=== PATIENT | female | born 1995 | race Caucasian/White ===

== ENCOUNTER 2019-12-29 09:42 | Outpatient (REF) | payer OTHER, SELFPAY ==
[2019-12-29 19:46] LABS: CT PCR NOT DETECTED (Not Detect.); NG PCR NOT DETECTED (Not Detect.)
[2019-12-30 09:32] LABS: BV Int Neg Control Negative (Negative); BV Int Pos Control Positive (Positive)
== END 2019-12-29 09:43 | disposition home or self-care (01) ==
LOC: HO.LAB 09:42
PROVIDERS: Visit Provider Advanced Practice Midwife
DX: N92.1 Excessive and frequent menstruation with irregular cycle (principal); E66.9 Obesity, unspecified
CPT/HCPCS: 87480; 87491; 87510; 87591; 87660; 99202

== ENCOUNTER 2020-01-13 12:41 | Outpatient (REF) | payer OTHER, SELFPAY ==
--- NOTE | 2020-01-13 12:49 | US_ITS ---
EXAMINATION: US PELVIS CLINICAL INFORMATION: Obesity. Excessive and frequent menstruation. COMPARISON: None TECHNIQUE: Transabdominal pelvic ultrasound was performed. Patient declined transvaginal exam. FINDINGS: Exam is limited due to body habitus. The uterus is retroverted and measures 7.9 x 4.9 x 4.4 cm in dimension. No focal uterine lesion is seen. Endometrial thickness is normal estimated at 0.7 cm. There are small nonspecific echogenic foci seen in the lower uterine segment and cervix. The right ovary is slightly enlarged and measures 4.6 x 2.9 x 3.8 cm, volume 27 mL. Left ovary is normal-appearing and measures 3.9 x 2.1 x 2.6 cm. There is no fluid in the pelvis. US/US pelvic complete IMPRESSION: Limited exam. Retroverted uterus. Normal thickness endometrium. Small nonspecific echogenic foci seen in the lower uterine segment and cervix. Enlarged right ovary. Normal appearing left ovary.
== END 2020-01-13 12:42 | disposition home or self-care (01) ==
LOC: HO.US 12:41
PROVIDERS: Visit Provider Advanced Practice Midwife
DX: E66.9 Obesity, unspecified (principal); N92.1 Excessive and frequent menstruation with irregular cycle
CPT/HCPCS: 76856

== ENCOUNTER → 2020-01-27 10:33 | Outpatient (BNVA) | payer OTHER, SELFPAY | PROVIDERS: PCP Internal Medicine; Visit Provider Advanced Practice Midwife | DX: Z76.89 Persons encountering health services in other specified circumstances (principal) ==